=== PATIENT | male | born 1980 | race Hispanic/Latino ===

== ENCOUNTER 2023-12-24 17:52 | Emergency (ER) | payer SELFPAY ==
[2023-12-24 17:58] VITALS: BP 150/96
[2023-12-24 18:18] LABS: % Eosinophils 4.6 % (0-6); % Immature Granulocytes 0.2 % (0-0.5); % Lymphocytes 23.5 % (20.5-51.1); % Monocytes 9.3 % (1.7-9.3); % Neutrophils 61.4 % (42.2-75.2); Absolute Basophils 0.1 10^3/uL (0-0.2); Absolute Eosinophils 0.6 10^3/uL (0-0.7); Absolute Lymphocytes 2.8 10^3/uL (1.2-3.4); Absolute Monocytes 1.1 10^3/uL (0.1-0.6); Absolute Neutrophils 7.4 10^3/uL (1.4-6.5); Hematocrit 40.3 % (39.0-52.0); Hemoglobin 14.6 g/dL (13.0-18.0); Mean Corp Hgb Conc. 36.2 g/dL (33.0-37.0); Mean Corpuscular Hgb 29.7 pg (27.0-31.0); Mean Corpuscular Volume 82.1 fL (80.0-94.0); Mean Platelet Volume 9.7 fL (7.4-10.4); Nucleated Red Blood Cells % 0 % (-); Platelet Count 309 10^3/uL (130-400); Red Blood Cell Count 4.91 10^6/uL (4.70-6.10); Red Cell Dist. Width 12.5 % (11.5-14.5); White Blood Cell Count 12.1 10^3/uL (4.8-10.8)
[2023-12-24 18:34] VITALS: BMI 42.4
[2023-12-24 18:38] LABS: ALT (SGPT) 36 U/L (0-50); AST (SGOT) 40 U/L (17-59); Albumin 4.6 g/dl (3.5-5.0); Alkaline Phosphatase 76 U/L (38-126); Blood Urea Nitrogen 16 mg/dl (9-20); Calcium 9.4 mg/dl (8.4-10.2); Carbon Dioxide 24 mmol/L (22-30); Chloride 104 mmol/L (98-107); Estimated Creatinine Clearance > 125 ml/min; Glucose 124 mg/dl (70-99); Sodium 138 mmol/L (135-145); Total Bilirubin 0.7 mg/dl (0.2-1.3); Total Protein 7.9 g/dl (6.3-8.2); eGFR > 60.00
--- NOTE | 2023-12-24 19:10 | ED.GENMED ---
History of Present Illness
General
Chief Complaint: Skin Problem
Time Seen by Provider: 12/24/23 18:39
History of Present Illness
History of Present Illness:
43-year-old male no past medical history presenting with pain near the anus starting 2 days ago. Patient denies nausea, vomiting, constipation or abdominal pain. Patient said he last had an bowel movement which was normal this morning. Patient
states he had a subjective fever last night. Pt denies history of similar symptoms or history of hemorrhoids. Pt denies blood in stool.
Phy Exam
Physical Exam
Physical Exam:
General: Alert, no acute distress
Head: NCAT
Eyes: clear conjunctiva
Neck: supple
Cardiac: regular rate and rhythm, no murmur
Lungs: clear to auscultation bilaterally. No wheezes, rales, or rhonchi. Speaking full unlabored sentences. No respiratory distress.
Abdomen: soft, nondistended nontender. No rebound or guarding.
: erythema with increased warmth and induration left perianal area, no fluctuance, no active drainage, no bleeding. does not involve perineum
MSK: no lower extremity edema bilaterally. No deformity
Skin: warm, dry
Neuro: Alert and oriented x3. no focal deficits
Course
Orders/Labs/Results
Orders:
Orders
12/24/23 18:11
CMP [Comprehensive Metabolic Panel] Urgent
Complete Blood Count/With Diff Urgent
12/24/23 18:54
CT Pelvis With Iv Contrast Urgent
Reason For Exam: erythema/induration left perianal area r/o abscess
12/24/23 20:56
Amoxicillin 875 mg/Clav 125 mg [Augmentin 875 mg/125 mg] 1 tablet PO NOW STA
Abnormal Lab Results
12/24/23
18:11
WBC 12.1 H 10^3/uL
(4.8-10.8)
Absolute Neuts (auto) 7.4 H 10^3/uL
(1.4-6.5)
Absolute Monos (auto) 1.1 H 10^3/uL
(0.1-0.6)
Glucose 124 H mg/dl
(70-99)
12/24/23 18:11
12/24/23 18:11
Vital Signs
Initial and Last Documented VS:
Initial Vital Signs
Temp Pulse Resp BP Pulse Ox
98.9 F 89 20 150/96 96
12/24/23 17:58 12/24/23 17:58 12/24/23 17:58 12/24/23 17:58 12/24/23 17:58
Last Documented Vital Signs
Temp Pulse Resp BP Pulse Ox
98.9 F 89 20 150/96 96
12/24/23 17:58 12/24/23 17:58 12/24/23 17:58 12/24/23 17:58 12/24/23 17:58
MDM/Problems Addressed
MDM/Problems Addressed:
Patient presents to the Emergency Department with ____perianal pain for 2 days with subjective fever
Number and Complexity of Problems Addressed at the Encounter
� Chronic conditions affecting care:
� Acute Exacerbation and/or Progression of Chronic Illness:
� Differential Diagnosis includes: Perirectal abscess, perianal abscess, cellulitis
Amount and/or Complexity of Data to be Reviewed and Analyzed
� I performed an independent evaluation of and my interpretation is:
EKG:
CT:
Xrays:
Laboratory Studies: mild leukocytosis at 12.1 wtih left shift, most likely from known abscess. otherwise electrolytes within normal limits.
Other:
� Review of other/old records reveals:
� Clinical information was obtained by an independent historian:
� Prescriptions/Medications Considered but not given:
� Further testing considered but not performed:
Risk of Complications and/or Morbidity or Mortality of Patient Management
� Social Determinants of health affecting care:
� Discussion with other providers (PCP, Hospitalists, Consultants, etc):
� Escalation of care including admission/observation vs risk of discharge considered: 43-year-old male presenting with pain around his anus starting 2 days ago with subjective fevers. Abdomen soft nondistended nontender. Induration and erythema to
left perianal area, no fluctuance, no active drainage. Will obtain CT pelvis r/o perirectal abscess. CT pelvis reviewed, shows 3.3x2x3.4cm perianal abscess. Given no area of fluctuance, will hold on I&D at this time. Will start on Augmentin, advised
sitz baths, discharge with general surgery follow up. Discussed with patient who expressed verbal understanding.
*Critical Care Note
Total Time (30-74mins, 75-104mins- exclusive of procedures): Not Applicable
ED Attending Note
-
Portions of this chart may have been created with voice recognition software.� Occasional wrong word or��sound alike� substitutions may have occurred due to the inherent limitations of voice recognition software.
Discharge Plan
Departure
Patient Disposition: Home (Routine Discharge)
Date of Disposition: 12/24/23
Time of Disposition: 20:56
Patient with high blood pressure during this ER visit?: Yes
Discharge Problem:
Abscess, perianal
Instructions: Anal Abscess and Fistula, Adult (DC), BLOOD PRESSURE
Prescriptions:
New
amoxicillin-pot clavulanate 875-125 mg tablet
1 tab PO BID 7 Days Qty: 14 0RF
Referrals:
NONE,* [Family Provider] -
Anders Gill MD [Active] -
Activity Restrictions/Additional Instructions:
Take augmetin twice daily for 7 days
Use sitz baths twice daily
Follow up with general surgery in 2-3 days
Return to the emergency department for new/worsening symptoms
Interventions
Interventions:
*Risk Screen - Suicide Last Done: 12/24/23 17:58
*General Assessment Last Done: 12/24/23 17:58
*Neglect/Abuse Screening Last Done: 12/24/23 17:58
ED-Skin Assessment Last Done: 12/24/23 19:12
Discharge Date and Time
Print Language: [place]
[2023-12-24] MEDS: AUGMENTIN 875 MG/125 MG 1 TABLET PO (21:03)
[2023-12-24 21:08] VITALS: BP 130/91
[2023-12-24 21:10] VITALS: BP 130/91
== END 2023-12-24 21:29 | disposition home or self-care (01) ==
LOC: EMR 17:52
PROVIDERS: Emergency Medicine; EMERGENCY PHYSICIAN Emergency Medicine
DX: K61.0 Anal abscess (principal); R03.0 Elevated blood-pressure reading, without diagnosis of hypertension
CPT/HCPCS: 99285; 72193; 80053; 85025; Q9967